=== PATIENT | female | born 1955 | race Hispanic/Latino ===

== ENCOUNTER 2020-02-15 09:00 | Outpatient (RCR) | payer MEDICARE, SELFPAY ==
--- NOTE | 2020-01-17 15:45 | PTOPEVAL ---
PHYSICAL THERAPY EVALUATION AND PLAN OF CARE Thank you for referring Barbara Norman to [facility] [place].? The patient is scheduled to be seen for therapy? 1-2x/week for 4 weeks. Please review, sign, date and return this plan of care DOC. I agree with and certify that the following plan of care is medically necessary. 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 She was recently diagnosed with corticobasil syndrome. States she tried to walk up steps and could not get the right leg up. Barbara does walk 35-40 minutes a day outside, on treadmill, or on the bike. She does continue her HEP from doing PT a year ago. Pain Score Pain Score 0: Self Report Lower Extremity Muscle Strength Testing General Lower Extremity Strength Reason Not Measured WNL/Left,WNL/Right Gross Lower Extremity Strength tested 5/5 Upper Extremity Muscle Strength Testing General Upper Extremity Strength Reason Not Measured WNL/Left,WNL/Right Gross Upper Extremity Strength Comments tested 5/5 Balance Assessment Olivarez Balance Assessment 53/56 Timed Up and Go Test (TUG) (Seconds) 10 Assistive Devices None 5 Time Sit to Stand Time in Seconds 11.78 Dynamic Gait Index /24 Gait Pattern Assessment Gait Pattern Hypotonic Gait,Weaving Gait Other Gait Observations right sided rigidity, especially of right UE; rigid facial expressions; very mild weaving in gait with fatigue 6 Minute Walk Total Distance (feet) 1,092 6 Minute Walk Gait Speed Score (feet/ 3.03 second) PT Clinical Summary Barbara is a 64 yo female presenting to outpatient PT with diagnosis of corticobasil syndrome. She presents today with mild balance deficits, rigidity of right side of body , and some weaving with gait pattern. I did not observe any freezing, but she describes episodes of freezing in that she cannot lift [her] leg when climbing stair
--- NOTE | 2020-02-15 09:52 | PTOPEVAL ---
PHYSICAL THERAPY DISCHARGE NOTE Thank you for referring Barbara Norman to [facility].? Please review, sign, date and return this plan of care DOC. I agree with and certify that the following plan of care is medically necessary. Referring Physician Date Discharge Diagnosis corticobasil syndrome Onset 2 years ago Subjective Information Barbara states she is doing well. Query Text:As Reported By Patient/ States that has had no falls. Family Continues to do all of her exercises and walks every day. her significant other comes with her to appointments to assist with describing the home situation. He states that he works really hard to involve her in the daily activities of the home and to engage her with the family. Pain Score Pain Score 0: Self Report Balance Assessment Olivarez Balance Assessment 56/56 Time Up Go (TUG) Timed Up and Go Test (TUG) (Seconds) 9 Assistive Devices None 5 Time Sit to Stand Time in Seconds 12.02 PT Clinical Summary Barbara is a 64 yo female presenting to outpatient PT with diagnosis of corticobasil syndrome. Barbara is performing all activities WNL for her age and despit eher condition. She has a very supportive family that help her to engage in daily activities, chores, and exercises, but Barbara is also very independent in being able to perform hre exercises . I recommend discharge from PT at this time. PT Services Indicated Yes Rehabilitation Potential Fair Patient/Caregiver's Personal Goals for none stated Rehabilitation Potential Barriers to Goal Achievements Impaired Memory,Severity of Condition Other Potential Barriers to Goal impaired cognition Achievement Support Requirements For Optimal None [place] Patient/Caregiver Informed of Benefits/ Yes Risks of Rehabilitation Patient/Caregiver Participated in Plan Yes of Care Patient/Caregiver Agreed with Problem Yes List/POC/Goals
== END 2020-02-15 10:33 | disposition home or self-care (01) ==
LOC: ANHPT 09:00
DX: G31.85 Corticobasal degeneration (principal)
CPT/HCPCS: 97110; 97163